=== PATIENT | female | born 1935 | race Caucasian/White ===

== ENCOUNTER → 2020-10-14 | Outpatient (CLI) | payer MEDICARE, OTHER ==
[~2020-10-14] MED LIST: [UNRECOGNIZED DRUG - OTHER]
== END | disposition home or self-care (01) ==
LOC: STAR 08:10
PROVIDERS: ATTEND Obstetrics & Gynecology
DX: Z20.822 Contact with and (suspected) exposure to COVID-19 (principal)
CPT/HCPCS: U0003

== ENCOUNTER 2020-10-20 05:18 | Day surgery (SDC) | payer MEDICARE ==
[~2020-10-20] VITALS: Ht 160 cm; Wt 58.3 kg
[2020-10-20] MEDS ORDERED: ASPI81TA45 PO (06:17)
[2020-10-20] MEDS ORDERED: DONE10TA7 PO (06:17)
[2020-10-20] MEDS ORDERED: MEMA7CAP2 PO (06:17)
[2020-10-20 06:18] VITALS: BP 135/81
[2020-10-20] MEDS ORDERED: LACTATED RINGERS 1,000 ML IV SCH (06:30)
[2020-10-20] MEDS ORDERED: CEFOTETAN 2 GM in DEXTROSE 5% 50 ML IVPB ONE (06:30)
[2020-10-20] MEDS ORDERED: CHLORHEXIDINE 15 ML UDC PO ONE (06:30)
[2020-10-20] MEDS ORDERED: CEFOTETAN 2 GM in SODIUM CHLORIDE 0.9% 50 ML IVPB ONE (06:30)
[2020-10-20] MEDS ORDERED: BUPIVACAINE/PF 0.25% ONE (06:53)
[2020-10-20] MEDS ORDERED: EPINEPHRINE 1 MG/ML, 1ML ONE (06:53)
[2020-10-20] MEDS ORDERED: HEPARIN 1,000 UNITS/ML, 10ML ONE (06:53)
[2020-10-20] MEDS ORDERED: FENTANYL PF 250 MCG/5ML ONE (07:20)
[2020-10-20] MEDS ORDERED: MIDAZOLAM 1 MG/ML, 2ML ONE (07:20)
[2020-10-20] MEDS ORDERED: PROPOFOL 50 ML ONE (07:20)
[2020-10-20] MEDS ORDERED: SUCCINYLCHOLINE 20 MG/ML, 10ML ONE (07:30)
[2020-10-20] MEDS ORDERED: BUPIVACAINE/PF-EPI 0.25% 1:200K INFIL ONE (07:54)
[2020-10-20] MEDS ORDERED: DEXAMETHASONE 4 MG/ML, 1ML ONE (09:14)
[2020-10-20] MEDS ORDERED: ONDANSETRON 2MG/ML, 2ML ONE (09:14)
[2020-10-20] MEDS ORDERED: PROPOFOL 10 MG/ML, 20ML ONE (09:14)
[2020-10-20] MEDS ORDERED: ROCURONIUM 10MG/ML,5ML ONE (09:14)
[2020-10-20] MEDS ORDERED: DIPHENHYDRAMINE 50 MG/ML, 1ML IVPush PRN (09:30)
[2020-10-20] MEDS ORDERED: EPHEDRINE 50 MG/ML, 1ML IM PRN (09:30)
[2020-10-20] MEDS ORDERED: PROMETHAZINE 25 MG/ML, 1ML IVPush PRN (09:30)
[2020-10-20] MEDS ORDERED: ONDANSETRON 2MG/ML, 2ML IVPush PRN (09:30)
[2020-10-20] MEDS ORDERED: HYDROmorphone 1 MG/ML, 1ML INJ IVPush PRN (09:30)
[2020-10-20] MEDS ORDERED: DIAZEPAM 5 MG/ML, 2ML IVPush PRN (09:30)
[2020-10-20] MEDS ORDERED: OXYcodone 5 MG/5 ML ORAL.SOL UDC PO PRN (09:30)
[2020-10-20] MEDS ORDERED: LABETALOL 5MG/ML, 20ML IV PRN (09:30)
[2020-10-20] MEDS ORDERED: EPHEDRINE 50 MG/ML, 1ML IVPush PRN (09:30)
[2020-10-20] MEDS ORDERED: ACETAMINOPHEN 325 MG TABLET PO PRN (09:30)
[2020-10-20] MEDS ORDERED: FENTANYL PF 100 MCG/2ML ONE (09:31)
[2020-10-20] MEDS: FENTANYL PF 100 MCG/2ML IV PRN ×3 (09:32→09:50)
[2020-10-20] MEDS ORDERED: OXYcodone 5 MG/5 ML ORAL.SOL UDC ONE (10:05)
== END 2020-10-20 14:35 | disposition home or self-care (01) ==
LOC: OR 05:18
PROVIDERS: ATTEND Obstetrics & Gynecology
DX: D27.1 Benign neoplasm of left ovary (principal); D27.0 Benign neoplasm of right ovary; R97.1 Elevated cancer antigen 125 [CA 125]; N81.4 Uterovaginal prolapse, unspecified; N87.9 Dysplasia of cervix uteri, unspecified; N84.0 Polyp of corpus uteri; D25.2 Subserosal leiomyoma of uterus; N73.6 Female pelvic peritoneal adhesions (postinfective); G30.9 Alzheimer's disease, unspecified; F02.80 Dementia in other diseases classified elsewhere, unspecified severity, without behavioral disturbance, psychotic disturbance, mood disturbance, and anxiety; G43.909 Migraine, unspecified, not intractable, without status migrainosus; Z79.899 Other long term (current) drug therapy; Z88.2 Allergy status to sulfonamides; Z88.8 Allergy status to other drugs, medicaments and biological substances; Z90.49 Acquired absence of other specified parts of digestive tract; Z96.653 Presence of artificial knee joint, bilateral; Z98.890 Other specified postprocedural states
CPT/HCPCS: 36415; 58554; 86850; 86900; 86923; 88307; J0171; J0330; J1100; J1644; J2250; J2405; J2704; J3010; J7120